=== PATIENT | female | born 1995 | race Caucasian/White ===

== ENCOUNTER → 2017-06-01 | Day surgery (SDC) | payer OTHER ==
[~2017-06-01] VITALS: Ht 152.4 cm; Wt 115.7 kg
[~2017-06-01] MED LIST: AUGMENTIN 875-1 EACH PO; CEPHALEXIN500 M3 PO; CYCLOBENZAPRINE10 M1 PO; KEFLEX500 MG PO; MOTRIN800 MG PO; NUVARING VAGIN1 EACH VG; ORTHO TRI-CYCL1 EAC1; PERCOCET 5-3251 EACH PO; REGLAN10 M1 PO; SERTRALINE HCL50 MG PO
--- NOTE | 2017-06-03 18:46 | Operative Report ---
Operative/Inv Procedure Report Surgery Date: 06/01/17 Name of Procedure: Laparoscopic 12 cm mesh repair of incarcerated ventral incisional hernia Pre-Operative Diagnosis: Incarcerated ventral incisional hernia Post-Operative Diagnosis: Same Estimated Blood Loss: scant Surgeon/Procurement Clerk: Obey ENAMORADO,Fernando SILVA Anesthesia: general endotracheal tube Operative/Procedure Note Note: Patient was positioned supine on the table. After successful induction of general anesthesia the abdomen was clipped prepped and draped in usual sterile fashion. During this time, an appropriately sized (based on the physical exam and the preoperative CT scan) Parietex round coated polyester mesh was prepared by marking it, then placing 4 equidistant 0 Paradise-Eder suture "anchors "at the periphery, tying 3 throws in each but leaving the ends long, clipped together. Also the abdominal skin is marked to guide where the mesh will lay, centered under the defect. After injection of local anesthetic at a spot in the mid to lateral left subcostal area, a horizontal 1-1/2 cm incision was made with a 15 blade. Using the plastic pointed-tipped translucent 5-12 trocar with the camera inserted, the abdominal wall was traversed through this incision, watching on the screen, as the trocar passes through the layers, alternating colors, yellow fat white fascia red muscle, until the tip just seems to salazar the inner thin peritoneal layer. At that point, I stop pushing and check if it's open by turning on the gas. If the belly insufflates then you know you can advance that large trocar into an empty space more directly without injuring the viscera. The gas was turned on to 15 mm. At this point you can see omentum going up into the defect. Next four 5 mm trochars are placed, 2 on each side, anterior axillary lines, one in the mid abdomen, and one lower down near the iliac crest. The adhesed incarcerated omentum is from the hernia sac using a combination of Endo Johny and cautery, checking to make sure there is no bowel involvement. This was a 2-1/2 cm defect, at the trocar just above the umbilicus from the previous laparoscopic cholecystectomy, and pressing in from the outside helps bring the edges closer to the instruments. Next the mesh is moistened, rolled up like a scroll with the rough surface outward and then stuffed down the camera trocar. Then the mesh was spread out making sure the rough surface faces up, and the 4 anchors (8 strands) are untangled. Next these anchors are brought up through the abdominal wall systematically at the corresponding spots marked earlier. First the pressure is lowered to 12. Using the local anesthetic needle to guide the trajectories and also for analgesia, 4 small nicks in the skin and made with a 15 blade. The sharp suture grasper is then inserted perpendicular through one of these incisions for example 12:00, and advanced until the tip pierces the peritoneum, then one of the strands is fed into its jaws, from its clip and then pulled outside and secured with a snap. Then the suture grasper is reinserted but this time coming through the peritoneum about a centimeter away from the first one, and the sibling strand is found and brought up through and paired with the first one. This step was repeated until all 4 anchors are through. Then they are pulled up and tied, burying the multiple knots below the level of the skin. Next the mesh is tacked down using the tacker loaded with absorbable tacks, spacing the them no more than 1 cm gaps at the periphery but also scattering some off the edges internally towards the and around the defect as a "second layer ". Initially the tacks are placed a few at a time symmetrically moving from one side of the table to the other to get a more accurate view, to keep the mesh from moving before it becomes more secure as more tacks are placed. After checking that the mesh is smooth and secure, and for hemostasis, especially where we reduced the contents, then we let the gas escape, pulling out the instruments and trochars. That fascial opening from the first incision is closed with 0 Vicryl suture. Then we closed the 5 trocar incisions at the skin with subcuticular 4-0 Monocryl, and then Mastisol, Steri- Strips and Band-Aids to all 9 sites. Overall estimated blood loss was minimal, lap and sponge counts were correct, wound expectancy was clean, IV fluids crystalloid, complications none, patient tolerated the procedure well, did not significantly esteves during extubation and was returned to the recovery room in satisfactory condition.
== END ==
LOC: STS 03:19
DX: K43.0 Incisional hernia with obstruction, without gangrene (principal); E66.9 Obesity, unspecified; Z68.42 Body mass index [BMI] 45.0-49.9, adult
CPT/HCPCS: 81025; C1781; C9399; J0131; J0690; J1100; J2250; J2405; J2765; J3490